=== PATIENT | female | born 1980 | race Two or more races ===

== ENCOUNTER 2018-02-19 17:07 | Emergency (ER) | payer MEDICAID, OTHER ==
[~2018-02-19] VITALS: Ht 162.6 cm; Wt 117.0 kg
[2018-02-19 19:35] VITALS: BP 119/64
[2018-02-19 19:59] LABS: Calcium 8.8 mg/dL (8.5-10.1); Potassium 4.1 mmol/L (3.5-5.1)
[2018-02-19] MEDS ORDERED: SODIUM CHLORIDE 0.9% 1,000 ML IV ONE (20:00)
[2018-02-19] MEDS ORDERED: ACETAMINOPHEN 500 MG TAB PO ONE (20:00)
[2018-02-19 20:03] LABS: BUN/Creatinine Ratio 9.8; Bilirubin, Total 0.3 mg/dL (0.2-1.0); Total Protein 7.5 g/dL (6.4-8.2)
[2018-02-19 20:32] LABS: Basophils # (auto) 0.1 uL; Basophils % (auto) 0.9 % (0.0-2.0); Eosinophils # (auto) 0.1 uL; Eosinophils % (auto) 1.5 % (0.0-7.0); Hematocrit 35.7 % (36.0-46.0); Hemoglobin 11.9 g/dL (12.2-16.2); Lymphocytes # (auto) 1.8 uL; Lymphocytes % (auto) 22.8 % (10.0-50.0); Mean Corpuscular Hemoglobin 29.5 pg (28.0-32.0); Mean Corpuscular Hgb Conc. 33.4 g/dL (32.0-36.0); Mean Corpuscular Volume 88.4 fL (80.0-100.0); Monocytes # (auto) 0.5 uL; Monocytes % (auto) 5.8 % (0.0-12.0); Neutrophils # (auto) 5.6 uL; Platelet Count (auto) 193 10^3/uL (140-450); Red Blood Cells 4.04 10^6/uL (4.0-5.20); Red Cell Distribution Width 15.7 % (11.8-14.3); White Blood Cell 8.1 10^3/uL (4.4-10.8)
== END 2018-02-19 21:05 | disposition home or self-care (01) ==
LOC: ER 17:14
DX: O26.892 Other specified pregnancy related conditions, second trimester (principal); O99.342 Other mental disorders complicating pregnancy, second trimester; E86.0 Dehydration; F41.9 Anxiety disorder, unspecified; Z3A.19 19 weeks gestation of pregnancy
CPT/HCPCS: 36415; 76805; 80053; 82962; 84702; 85025; 96360

== ENCOUNTER 2018-05-11 17:14 | Emergency (ER) | payer MEDICAID ==
[~2018-05-11] VITALS: Ht 154.9 cm; Wt 122.0 kg
[2018-05-11 18:13] VITALS: BP 114/55
[2018-05-11] MEDS ORDERED: TERBUTALINE SULFATE 1 MG/ML 1ML VIAL SC ONE (19:26)
[2018-05-11] MEDS ORDERED: ACETAMINOPHEN 500 MG TAB PO ONE (23:30)
== END 2018-05-12 00:18 | disposition home or self-care (01) ==
LOC: ER 17:19 → LDRP 18:21 → UNDOADMOB 18:21 → ER 05-12 00:18
DX: O9A.213 Injury, poisoning and certain other consequences of external causes complicating pregnancy, third trimester (principal); S93.401A Sprain of unspecified ligament of right ankle, initial encounter; S83.91XA Sprain of unspecified site of right knee, initial encounter; Z3A.31 31 weeks gestation of pregnancy; X50.1XXA Overexertion from prolonged static or awkward postures, initial encounter; Y93.89 Activity, other specified; Y99.8 Other external cause status; Y92.89 Other specified places as the place of occurrence of the external cause
CPT/HCPCS: 29515; 99283; J3105

== ENCOUNTER 2018-05-11 18:21 | Observation (INO) | payer MEDICAID ==
[2018-05-11] MEDS ORDERED: TERBUTALINE SULFATE 1 MG/ML 1ML VIAL SC ONE (19:30)
[2018-05-11 19:53] LABS: Alcohol, Urine < 3.0 mg/dL (0-5); Amphetamine Screen, Urine NEGATIVE (NEGATIVE); Barbiturate Scree,Urine NEGATIVE (NEGATIVE); Benzodiazephine Screen, Urine NEGATIVE (NEGATIVE); Cannabinoid Screen, Urine NEGATIVE (NEGATIVE); Cocaine Screen, Urine NEGATIVE (NEGATIVE); Opiate Scree,Urine NEGATIVE (NEGATIVE); Phencyclidine Screen, Urine NEGATIVE (NEGATIVE)
[2018-05-11 20:02] LABS: Urine Bacteria NONE SEEN /hpf (None Seen); Urine Blood Negative /uL (Negative); Urine Mucus FEW (None Seen); Urine Specific Gravity 1.018 (1.001-1.035); Urine WBC 1 /hpf (0 - 5)
== END 2018-05-11 22:18 | disposition home or self-care (01) | DRG 566 ==
LOC: LDRP 18:21
PROVIDERS: ADMIT Specialist; ATTEND Specialist
DX: O26.893 Other specified pregnancy related conditions, third trimester (principal); M25.539 Pain in unspecified wrist; M79.10 Myalgia, unspecified site; M79.606 Pain in leg, unspecified; W19.XXXA Unspecified fall, initial encounter; Y93.89 Activity, other specified; Y92.89 Other specified places as the place of occurrence of the external cause; Y99.8 Other external cause status; Z3A.31 31 weeks gestation of pregnancy
CPT/HCPCS: 59025; 76805; 80307; 81001; 81002; G0378; 96372

== ENCOUNTER → 2018-06-15 | Outpatient (CLI) | payer MEDICAID ==
[2018-06-15 15:42] LABS: Basophils # (auto) 0 uL; Basophils % (auto) 0.7 % (0.0-2.0); Eosinophils # (auto) 0.1 uL; Eosinophils % (auto) 1.1 % (0.0-7.0); Hemoglobin 13.5 g/dL (12.2-16.2); Lymphocytes # (auto) 1.5 uL; Lymphocytes % (auto) 22.1 % (10.0-50.0); Mean Corpuscular Hemoglobin 30.4 pg (28.0-32.0); Mean Corpuscular Hgb Conc. 33.8 g/dL (32.0-36.0); Mean Corpuscular Volume 90.1 fL (80.0-100.0); Monocytes # (auto) 0.4 uL; Monocytes % (auto) 6.2 % (0.0-12.0); Neutrophils # (auto) 4.7 uL; Neutrophils % (auto) 69.9 % (37.0-80.0); Nucleated Red Blood Cells % 0.1 %; Platelet Count (auto) 182 10^3/uL (140-450); Red Blood Cells 4.45 10^6/uL (4.0-5.20); Red Cell Distribution Width 14.3 % (11.8-14.3); White Blood Cell 6.7 10^3/uL (4.4-10.8)
== END | disposition home or self-care (01) ==
LOC: LAB 15:15
PROVIDERS: ATTEND Specialist
DX: Z34.83 Encounter for supervision of other normal pregnancy, third trimester (principal); Z3A.37 37 weeks gestation of pregnancy
CPT/HCPCS: 36415; 85025; 87081

== ENCOUNTER → 2018-06-17 | Outpatient (CLI) | payer MEDICAID ==
[2018-06-17 11:50] LABS: Basophils # (auto) 0 uL; Basophils % (auto) 0.4 % (0.0-2.0); Eosinophils # (auto) 0.1 uL; Eosinophils % (auto) 0.8 % (0.0-7.0); Hematocrit 39.9 % (36.0-46.0); Hemoglobin 13.5 g/dL (12.2-16.2); Lymphocytes # (auto) 1.4 uL; Lymphocytes % (auto) 19.1 % (10.0-50.0); Mean Corpuscular Hemoglobin 30.4 pg (28.0-32.0); Mean Corpuscular Hgb Conc. 33.8 g/dL (32.0-36.0); Mean Corpuscular Volume 89.9 fL (80.0-100.0); Monocytes # (auto) 0.4 uL; Monocytes % (auto) 5.7 % (0.0-12.0); Neutrophils # (auto) 5.5 uL; Nucleated Red Blood Cells % 0.1 %; Platelet Count (auto) 179 10^3/uL (140-450); Red Blood Cells 4.43 10^6/uL (4.0-5.20); Red Cell Distribution Width 13.9 % (11.8-14.3); White Blood Cell 7.4 10^3/uL (4.4-10.8)
== END | disposition home or self-care (01) ==
LOC: LAB 11:00
PROVIDERS: ATTEND Specialist
DX: O09.93 Supervision of high risk pregnancy, unspecified, third trimester (principal); Z3A.37 37 weeks gestation of pregnancy
CPT/HCPCS: 36415; 83036; 85025

== ENCOUNTER 2018-06-30 12:15 | Observation (INO) | payer MEDICAID ==
[2018-06-30 13:57] LABS: Albumin 2.5 g/dL (3.4-5.0); Calcium 9.1 mg/dL (8.5-10.1); Potassium 4.2 mmol/L (3.5-5.1)
[2018-06-30 14:00] LABS: BUN/Creatinine Ratio 13.5; Bilirubin, Total 0.5 mg/dL (0.2-1.0); Total Protein 6.7 g/dL (6.4-8.2)
== END 2018-06-30 14:15 | disposition home or self-care (01) | DRG 566 ==
LOC: LDRP 12:15
PROVIDERS: ADMIT Specialist; ATTEND Specialist
DX: O26.613 Liver and biliary tract disorders in pregnancy, third trimester (principal); K83.1 Obstruction of bile duct; O09.523 Supervision of elderly multigravida, third trimester; O24.419 Gestational diabetes mellitus in pregnancy, unspecified control; O36.63X0 Maternal care for excessive fetal growth, third trimester, not applicable or unspecified; O62.9 Abnormality of forces of labor, unspecified; Z3A.38 38 weeks gestation of pregnancy
CPT/HCPCS: 36415; 59025; 76818; 80053; 81002; G0378

== ENCOUNTER 2018-07-01 08:55 | Inpatient (IN) | payer MEDICAID ==
[~2018-07-01] VITALS: Ht 165.1 cm; Wt 123.4 kg
[2018-07-01] MEDS: ceFAZolin 1GM/50ML 50 ML IV SCH (02:20)
[2018-07-01] MEDS ORDERED: LACT. RINGERS/OXYTOCIN 20UNITS 1,000 ML IV SCH (09:15)
[2018-07-01] MEDS ORDERED: PHISODERM TOP SOLN 240ML BTL TOP ONE (09:15)
[2018-07-01] MEDS ORDERED: PROMETHAZINE HCL 25 MG/ML 1ML IV PRN (09:15)
[2018-07-01] MEDS ORDERED: WITCH HAZEL-GLYCERIN PAD TOP PRN (09:15)
[2018-07-01] MEDS ORDERED: DERMOPLAST 60ML BOTTLE TOP PRN (09:15)
[2018-07-01] MEDS ORDERED: NALBUPHINE HCL 10 MG/1ml INJECTION IM PRN (09:15)
[2018-07-01] MEDS ORDERED: PENICILLIN G POT 5MIL/D5 50ML 50 ML IV ONE (09:30)
[2018-07-01] MEDS: LACTATED RINGER'S 1,000 ML IV SCH ×3 (09:35→22:00)
[2018-07-01 10:08] LABS: Basophils # (auto) 0 uL; Basophils % (auto) 0.4 % (0.0-2.0); Eosinophils # (auto) 0.1 uL; Eosinophils % (auto) 1.7 % (0.0-7.0); Hematocrit 39.4 % (36.0-46.0); Hemoglobin 13.1 g/dL (12.2-16.2); Lymphocytes # (auto) 1.4 uL; Lymphocytes % (auto) 20.2 % (10.0-50.0); Mean Corpuscular Hemoglobin 29.8 pg (28.0-32.0); Mean Corpuscular Hgb Conc. 33.2 g/dL (32.0-36.0); Mean Corpuscular Volume 89.7 fL (80.0-100.0); Monocytes # (auto) 0.5 uL; Monocytes % (auto) 6.8 % (0.0-12.0); Neutrophils % (auto) 70.9 % (37.0-80.0); Nucleated Red Blood Cells % 0.2 %; Platelet Count (auto) 179 10^3/uL (140-450); Red Blood Cells 4.39 10^6/uL (4.0-5.20); Red Cell Distribution Width 14.1 % (11.8-14.3); White Blood Cell 7.1 10^3/uL (4.4-10.8)
[2018-07-01 10:51] LABS: INR 0.87 (0.9-1.15); Partial Thromboplastin Time 25.2 sec (23.78-33.04); Prothrombin Time 9.4 sec (9.27-12.13)
[2018-07-01 11:06] LABS: Fibrinogen 522.5 mg/dL (177-375)
[2018-07-01] MEDS ORDERED: TERBUTALINE SULFATE 1 MG/ML 1ML VIAL SC ONE ×2 (12:00→13:40)
[2018-07-01 12:14] LABS: Albumin 2.5 g/dL (3.4-5.0); Calcium 9.3 mg/dL (8.5-10.1); Potassium 3.7 mmol/L (3.5-5.1); Uric Acid 4.3 mg/dL (2.6-6.0)
[2018-07-01 12:16] LABS: Bilirubin, Total 0.5 mg/dL (0.2-1.0); Total Protein 6.9 g/dL (6.4-8.2)
[2018-07-01] MEDS ORDERED: PENICILLIN G POTASSIUM 2,500,000 UNITS in D5W 5% 50 ML IV SCH (13:15)
[2018-07-01] MEDS ORDERED: TERBUTALINE SULFATE 5 MG TAB PO ONE (13:45)
[2018-07-01] MEDS ORDERED: OXYTOCIN 10UNIT/ML 1ML VIAL IV ONE (17:32)
[2018-07-01] MEDS ORDERED: MORPHINE SULF(PF) 0.5MG/ML 10ML VIAL ONE (17:35)
[2018-07-01] MEDS ORDERED: fentaNYL CITRATE 100 MCG/2 ML VL ONE (17:35)
[2018-07-01] MEDS ORDERED: SODIUM CITR/CITRIC ACID ORAL SOLN 30 ML PO SCH (18:00)
[2018-07-01] MEDS ORDERED: ONDANSETRON HCL 4 MG/2 ML VIAL IV PRN (19:15)
[2018-07-01] MEDS ORDERED: HYDROmorphone HCL 2 MG/ML VL IV PRN (19:15)
[2018-07-01] MEDS ORDERED: NALOXONE HCL 0.4 MG/ML VIAL IV PRN (19:15)
[2018-07-01] MEDS ORDERED: ACETAMINOPHEN IV 1000 MG/100ML (10MG/ML) IV ONE (19:15)
[2018-07-01 20:00] VITALS: BP 118/71
[2018-07-01 21:00] VITALS: BP 122/70
[2018-07-01] MEDS: diphenhdrAMINE HCL 50 MG/1 ML VL IV PRN (22:52)
[2018-07-01 23:00] VITALS: BP 109/63
[2018-07-02] VITALS (11 sets, daily range): BP systolic 96–131; BP diastolic 49–76
[2018-07-02] MEDS: KETOROLAC TROMETH 30 MG/ML 1ML VIAL IV SCH ×2 (02:35→09:46)
[2018-07-02] MEDS: diphenhdrAMINE HCL 50 MG/1 ML VL IV PRN ×2 (03:45→09:47)
[2018-07-02 06:15] LABS: Basophils # (auto) 0 uL; Basophils % (auto) 0.5 % (0.0-2.0); Eosinophils # (auto) 0.1 uL; Hematocrit 31.3 % (36.0-46.0); Hemoglobin 10.5 g/dL (12.2-16.2); Lymphocytes # (auto) 1.5 uL; Lymphocytes % (auto) 21.4 % (10.0-50.0); Mean Corpuscular Hemoglobin 30.6 pg (28.0-32.0); Mean Corpuscular Hgb Conc. 33.6 g/dL (32.0-36.0); Mean Corpuscular Volume 90.9 fL (80.0-100.0); Monocytes # (auto) 0.4 uL; Monocytes % (auto) 5.6 % (0.0-12.0); Neutrophils # (auto) 5.1 uL; Neutrophils % (auto) 71.5 % (37.0-80.0); Platelet Count (auto) 141 10^3/uL (140-450); Red Blood Cells 3.44 10^6/uL (4.0-5.20); Red Cell Distribution Width 14.2 % (11.8-14.3); White Blood Cell 7.1 10^3/uL (4.4-10.8)
[2018-07-02] MEDS: LACTATED RINGER'S 1,000 ML IV SCH (06:50)
[2018-07-02] MEDS ORDERED: HYDROcodone-ACET 5/325MG TAB PO PRN (10:15)
[2018-07-02] MEDS: ceFAZolin 1GM/50ML 50 ML IV SCH ×2 (10:31→19:55)
[2018-07-02] MEDS: IBUPROFEN 800 MG TAB PO PRN ×2 (15:04→22:40)
[2018-07-02] MEDS ORDERED: ceFAZolin 1GM/50ML 50 ML IV SCH (19:45)
[2018-07-02] MEDS: HYDROcodone-ACET 5/325MG TAB PO PRN (20:50)
[2018-07-02] MEDS: DOCUSATE SOD 100 MG CAP PO SCH (22:32)
[2018-07-03] MEDS: HYDROcodone-ACET 5/325MG TAB PO PRN ×5 (02:58→23:14)
[2018-07-03 03:02] VITALS: BP 107/55
[2018-07-03 07:43] VITALS: BP 103/57
[2018-07-03] MEDS: DOCUSATE SOD 100 MG CAP PO SCH ×2 (09:44→22:31)
[2018-07-03] MEDS ORDERED: LABETALOL HCL 200 MG TAB PO SCH (10:00)
[2018-07-03 12:00] VITALS: BP 111/62
[2018-07-03] MEDS: IBUPROFEN 800 MG TAB PO PRN ×2 (12:45→20:55)
[2018-07-03 16:00] VITALS: BP 103/66
[2018-07-03 22:57] VITALS: BP 108/61
[2018-07-04 03:00] VITALS: BP 97/52
[2018-07-04] MEDS: HYDROcodone-ACET 5/325MG TAB PO PRN ×2 (04:17→10:51)
[2018-07-04] MEDS: IBUPROFEN 800 MG TAB PO PRN (05:09)
[2018-07-04 07:35] VITALS: BP 115/62
[2018-07-04] MEDS ORDERED: PREN-96 PO (08:47)
[2018-07-04] MEDS: DOCUSATE SOD 100 MG CAP PO SCH (09:57)
[2018-07-04 11:30] VITALS: BP 104/65
== END 2018-07-04 12:30 | disposition home or self-care (01) | DRG 540 ==
LOC: LDRP 08:55
PROVIDERS: ADMIT Specialist; ATTEND Specialist
PROC: 0UB60ZZ Excision of Left Fallopian Tube, Open Approach (ICD-10-PCS; 2018-07-01)
PROC: 0UL70CZ Occlusion of Bilateral Fallopian Tubes with Extraluminal Device, Open Approach (ICD-10-PCS; 2018-07-01)
PROC: 10D00Z1 Extraction of Products of Conception, Low, Open Approach (ICD-10-PCS; principal; 2018-07-01 17:32)
DX: O36.63X0 Maternal care for excessive fetal growth, third trimester, not applicable or unspecified (principal); K83.1 Obstruction of bile duct; O26.62 Liver and biliary tract disorders in childbirth; O24.429 Gestational diabetes mellitus in childbirth, unspecified control; E66.01 Morbid (severe) obesity due to excess calories; O99.214 Obesity complicating childbirth; O99.824 Streptococcus B carrier state complicating childbirth; N83.8 Other noninflammatory disorders of ovary, fallopian tube and broad ligament; Z37.0 Single live birth; Z3A.38 38 weeks gestation of pregnancy; Z90.49 Acquired absence of other specified parts of digestive tract
CPT/HCPCS: 36415; 59025; 76805; 76818; 80053; 81002; 84550; 85025; 85384; 85610; 85730; 86592; 86790; 86850; 86900; 86901; 87340; 94760; 94762; 96366; 96372; 96375; G0378; J0131; J0690; J1885; J2540; J7060

== ENCOUNTER 2018-11-14 18:49 | Emergency (ER) | payer SELFPAY ==
[~2018-11-14] VITALS: Ht 165.1 cm; Wt 122.5 kg
[~2018-11-14 18:49] MED LIST: PREN-96 PO
[2018-11-15 04:45] VITALS: BP 140/81
[2018-11-15] MEDS ORDERED: METHOCARBAMOL 500 MG TAB PO ONE (04:45)
[2018-11-15] MEDS ORDERED: IBUPROFEN 800 MG TAB PO ONE (04:45)
== END 2018-11-15 06:07 | disposition home or self-care (01) ==
LOC: ER 18:50
DX: M54.5 Low back pain (principal); R42 Dizziness and giddiness; R51 Headache; R11.0 Nausea; W01.0XXA Fall on same level from slipping, tripping and stumbling without subsequent striking against object, initial encounter; Y93.89 Activity, other specified; Y99.8 Other external cause status; Y92.89 Other specified places as the place of occurrence of the external cause
CPT/HCPCS: 72100; 73110; 73562

== ENCOUNTER 2018-12-07 16:20 | Emergency (ER) | payer SELFPAY ==
[~2018-12-07] VITALS: Ht 162.6 cm; Wt 122.5 kg
[2018-12-07 18:20] VITALS: BP 134/77
[2018-12-07] MEDS ORDERED: KETOROLAC TROMETH 60MG/2ML VIAL IM ONE (20:53)
== END 2018-12-07 22:26 | disposition home or self-care (01) ==
LOC: ER 16:23
DX: M79.602 Pain in left arm (principal); M25.512 Pain in left shoulder; M25.522 Pain in left elbow; R51 Headache; Z90.49 Acquired absence of other specified parts of digestive tract; Z79.899 Other long term (current) drug therapy
CPT/HCPCS: 29105; 73030; 73060; 73080; 96372; 99283; J1885

== ENCOUNTER 2018-12-26 21:49 | Emergency (ER) | payer MEDICAID ==
[~2018-12-26] VITALS: Ht 162.6 cm; Wt 104.3 kg
[2018-12-26] MEDS ORDERED: ASPirin 81 mg TAB PO ONE (22:15)
[2018-12-26 22:44] LABS: Basophils # (auto) 0.1 uL; Basophils % (auto) 1.3 % (0.0-2.0); Eosinophils # (auto) 0.2 uL; Eosinophils % (auto) 2.4 % (0.0-7.0); Hematocrit 39.1 % (36.0-46.0); Hemoglobin 13.2 g/dL (12.2-16.2); Lymphocytes # (auto) 2.5 uL; Lymphocytes % (auto) 28.4 % (10.0-50.0); Mean Corpuscular Hemoglobin 29.9 pg (28.0-32.0); Mean Corpuscular Hgb Conc. 33.8 g/dL (32.0-36.0); Mean Corpuscular Volume 88.4 fL (80.0-100.0); Monocytes # (auto) 0.6 uL; Monocytes % (auto) 7.1 % (0.0-12.0); Neutrophils # (auto) 5.3 uL; Neutrophils % (auto) 60.8 % (37.0-80.0); Nucleated Red Blood Cells % 0.1 %; Platelet Count (auto) 185 10^3/uL (140-450); Red Blood Cells 4.43 10^6/uL (4.0-5.20); Red Cell Distribution Width 13.4 % (11.8-14.3); White Blood Cell 8.8 10^3/uL (4.4-10.8)
[2018-12-26 23:10] LABS: INR 0.93 (0.9-1.15); Partial Thromboplastin Time 25.6 sec (23.64-32.05)
[2018-12-26 23:13] LABS: Alanine Aminotransferase 43 U/L (13-56); Albumin 3.3 g/dL (3.4-5.0); Anion Gap 5 (5-15); Aspartate Aminotransferase 44 U/L (15-37); BUN/Creatinine Ratio 14.5; Blood Urea Nitrogen 8 mg/dL (7-18); Calcium 8.4 mg/dL (8.5-10.1); Carbon Dioxide 28 mmol/L (21-32); Chloride 104 mmol/L (98-107); GFR African American 159 mL/min; GFR Non-African American 131 mL/min; Glucose 103 mg/dL (74-106); Potassium 4.4 mmol/L (3.5-5.1); Sodium 137 mmol/L (136-145)
[2018-12-26 23:29] LABS: Alkaline Phosphatase 68 U/L (45-117); Bilirubin, Total 0.5 mg/dL (0.2-1.0); Total Protein 7.3 g/dL (6.4-8.2)
[2018-12-26] MEDS ORDERED: LIDOCAINE VISCOUS 2% 15ML UD PO ONE (23:45)
[2018-12-26] MEDS ORDERED: ALUM & MAG HYDROX-SIMETH LIQ(MAALOX) 30 ML PO ONE (23:45)
[2018-12-26] MEDS ORDERED: DONNATAL 5ml ORAL Elix (BELLADONNA ALK-PHENOBARB) PO ONE (23:45)
[2018-12-27 00:30] VITALS: BP 126/79
== END 2018-12-27 02:51 | disposition home or self-care (01) ==
LOC: EDBD 21:49 → ER 21:55
DX: K21.9 Gastro-esophageal reflux disease without esophagitis (principal); R07.2 Precordial pain; F41.9 Anxiety disorder, unspecified; M06.9 Rheumatoid arthritis, unspecified; Z79.899 Other long term (current) drug therapy
CPT/HCPCS: 36415; 71045; 80053; 83880; 84484; 85025; 85610; 85730; 93005; 94761

== ENCOUNTER → 2019-09-14 | Emergency (ER) | payer MEDICAID ==
[~2019-09-14] VITALS: Ht 162.6 cm; Wt 113.4 kg
[~2019-09-14] MED LIST changes: +ACETAMINOPHEN/CODEINE#3 (300/30mg) TAB PO ONE
[2019-09-14 16:05] VITALS: BP 144/82
== END | disposition home or self-care (01) ==
LOC: ER 15:46
DX: K08.89 Other specified disorders of teeth and supporting structures (principal); Z90.49 Acquired absence of other specified parts of digestive tract

== ENCOUNTER 2020-09-26 17:47 | Emergency (ER) | payer MEDICAID ==
[~2020-09-26] VITALS: Ht 165.1 cm; Wt 127.0 kg
[~2020-09-26 17:47] MED LIST changes: -ACETAMINOPHEN/CODEINE#3 (300/30mg) TAB PO ONE
[2020-09-26 18:32] VITALS: BP 136/73
[2020-09-26] MEDS ORDERED: ONDANSETRON ODT 4 MG TAB PO ONE (20:15)
[2020-09-26] MEDS ORDERED: HYDROcodone-ACET 10/325MG TAB PO ONE (20:15)
== END 2020-09-26 20:54 | disposition home or self-care (01) ==
LOC: ER 17:47
DX: S63.501A Unspecified sprain of right wrist, initial encounter (principal); Z90.49 Acquired absence of other specified parts of digestive tract; Z79.899 Other long term (current) drug therapy; W18.39XA Other fall on same level, initial encounter; Y93.89 Activity, other specified; Y92.89 Other specified places as the place of occurrence of the external cause; Y99.8 Other external cause status
CPT/HCPCS: 29125; 73110; 99283; Q0162

== ENCOUNTER 2021-05-13 09:18 | Emergency (ER) | payer MEDICAID ==
[~2021-05-13] VITALS: Ht 165.1 cm; Wt 127.0 kg
[2021-05-13 10:58] VITALS: BP 154/98
[2021-05-13] MEDS ORDERED: IBUP800T27 PO (13:55)
[2021-05-13] MEDS ORDERED: PRED20TA2 PO (13:55)
[2021-05-13] MEDS ORDERED: CIPRSUS OT (13:55)
[2021-05-13] MEDS ORDERED: KETOROLAC TROMETH 60MG/2ML VIAL IM ONE (14:00)
[2021-05-13] MEDS ORDERED: methylPREDNISolone SOD SUCC 125 MG/2 ML VL IM ONE (14:00)
== END 2021-05-13 14:35 | disposition home or self-care (01) ==
LOC: ER 09:18
DX: H60.93 Unspecified otitis externa, bilateral (principal); Z90.49 Acquired absence of other specified parts of digestive tract; Z98.51 Tubal ligation status
CPT/HCPCS: 96372; 99284; J1885; J2930

== ENCOUNTER 2025-02-09 18:40 | Emergency (ER) | payer SELFPAY, MEDICAID ==
[~2025-02-09] VITALS: Ht 162.6 cm; Wt 123.0 kg
[~2025-02-09 18:40] MED LIST changes: +CIPRSUS OT; +IBUP-1456 PO; +PRED20TA2 PO
[2025-02-09] MEDS: SODIUM CHLORIDE 0.9% 2,000 ML IV ONE (20:39)
[2025-02-09] MEDS: KETOROLAC TROMETH 30 MG/ML 1ML VIAL IV ONE (20:55)
[2025-02-09] MEDS: PROCHLORPERAZINE EDISYLATE 5 MG/ML 2ML VIAL IV ONE (20:55)
[2025-02-09 21:11] LABS: Hematocrit 40.6 % (36.0-46.0); Hemoglobin 13.7 g/dL (12.2-16.2); Mean Corpuscular Hemoglobin 29.6 pg (28.0-32.0); Mean Corpuscular Volume 87.7 fL (80.0-100.0); Nucleated Red Blood Cells % 0.2 %
[2025-02-09 21:23] LABS: Alanine Aminotransferase 19 U/L (7-40); Albumin 4.3 g/dL (3.2-4.8); Alkaline Phosphatase 64 U/L (46-116); Anion Gap 10 (5-15); BUN/Creatinine Ratio 14.1 (10.0-20.0); Calcium 8.9 mg/dL (8.7-10.4); Carbon Dioxide 26 mmol/L (20-31); Chloride 105 mmol/L (98-107); Potassium 4.3 mmol/L (3.5-5.1); Sodium 141 mmol/L (136-145); Total Protein 7.6 g/dL (5.7-8.2)
[2025-02-09 21:24] LABS: Bilirubin, Total 0.7 mg/dL (0.2-1.0)
[2025-02-09 21:26] LABS: Free T3 3.42 pg/mL (2.3-4.2)
[2025-02-09 21:27] LABS: Free T4 (Free Thyroxine) 1.12 ng/dL (0.89-1.76)
[2025-02-09 21:30] LABS: Blood Urea Nitrogen 9 mg/dL (9-23); Glucose 114 mg/dL (74-106)
--- NOTE | 2025-02-09 21:31 | ED.PDOC ---
HPI (NEURO) HPI Comments 44-year-old female presents to the ED chief complaint headache x2 weeks. Patient reports gradual onset of headache top of her head 9/10 on pain scale describes as pressure, related symptoms of nausea. patient also reports proximally three months ago was diagnosed with multiple thyroid nodules one was aspirated and was negative she also notes was diagnosed with hypothyroidism and was supposed to take medication but currently not on any make indication due to her current insurance status. patient also states changes in her menstrual cycle. denies or urinary symptoms. Denies chest pain, difficulty breathing, shortness of breath, numbness, weakness. 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: No Pertinent SPRUE KNOCKER History Family History Family History: Unknown Social History Smoker: Non-Smoker Alcohol: Denies ETOH Use Drugs: Denies Drug Use Lives In: Home All Other Systems: Reviewed and Negative (SEE HPI) Physical Exam General Appearance: No Apparent Distress, Normal HEENT: Normal ENT Inspection, Pharynx Normal, TMs Normal Neck: Full Range of Motion, Non-Tender Respiratory: Lungs Clear, No Respiratory Distress, Normal Breath Sounds Cardiovascular: No Edema, No JVD, No Murmur, No Gallop, Normal Peripheral Pulses, Regular Rate/Rhythm Breast Exam: Deferred Gastrointestinal: No Organomegaly, Non Tender, No Pulsatile Mass, Normal Bowel Sounds, Soft Genitalia: Deferred Pelvic: Deferred Rectal: Deferred Extremities: Normal capillary refill, Normal range of motion, No pedal edema Musculoskeletal : Apperance: Normal Neurologic: Alert, No Motor Deficits, Normal Affect, Normal Mood, No Sensory Deficits Cerebellar Function: Normal Reflexes: Normal Skin: Dry, Normal Color, Warm Lymphatic: No Adenopathy Was a procedure done? Was a procedure done?: No Differential Diagnosis (SZ) Headache: Cluster, Migraine, Epidural Hemorrhage, Intracerebral Hemorrhage, Subarachnoid Hemorrhage, Subdural Hemorrhage, Mass Lesion, Meningitis, Sinusitis X-Ray, Labs, Meds, VS Vital Signs Date Time Temp Pulse Resp B/P (MAP) Pulse Ox O2 Delivery O2 Flow Rate FiO2 02/09/25 21:48 98.3 75 19 129/85 (100) 96 98.3 02/09/25 20:35 98.3 79 19 140/90 (107) 94 98.3 02/09/25 20:05 Room Air* 0 21 02/09/25 18:41 97.0 83 18 128/58 97 97.0 Lab Test 02/09/25 20:38 02/09/25 20:16 Range/Units White Blood Count 8.6 4.4-10.8 10^3/uL Red Blood Count 4.63 4.0-5.20 10^6/uL Hemoglobin 13.7 12.2-16.2 g/dL Hematocrit 40.6 36.0-46.0 % Mean Corpuscular Volume 87.7 80.0-100.0 fL Mean Corpuscular Hemoglobin 29.6 28.0-32.0 pg Mean Corpuscular Hemoglobin Concent 33.7 32.0-36.0 g/dL Red Cell Distribution Width 13.3 11.8-14.3 % Platelet Count 210 140-450 10^3/uL Mean Platelet Volume 9.8 6.9-10.8 fL Neutrophils (%) (Auto) 60.1 37.0-80.0 % Lymphocytes (%) (Auto) 30.2 10.0-50.0 % Monocytes (%) (Auto) 7.1 0.0-12.0 % Eosinophils (%) (Auto) 1.7 0.0-7.0 % Basophils (%) (Auto) 0.9 0.0-2.0 % Neutrophils # (Auto) 5.2 1.6-8.6 10 ^3/uL Lymphocytes # (Auto) 2.6 0.4-5.4 10 ^3/uL Monocytes # (Auto) 0.6 0-1.3 10 ^3/uL Eosinophils # (Auto) 0.1 0-0.8 10 ^3/uL Basophils # (Auto) 0.1 0-0.2 10 ^3/uL Nucleated Red Blood Cells 0.2 % Sodium Level 141 136-145 mmol/L Potassium Level 4.3 3.5-5.1 mmol/L Chloride Level 105 98-107 mmol/L Carbon Dioxide Level 26 20-31 mmol/L Anion Gap 10 5-15 Blood Urea Nitrogen 9 9-23 mg/dL Creatinine 0.64 0.550-1.02 mg/dL Glomerular Filtration Rate Calc 112 >90 mL/min BUN/Creatinine Ratio 14.1 10.0-20.0 Serum Glucose 114 H 74-106 mg/dL Calcium Level 8.9 8.7-10.4 mg/dL Total Bilirubin 0.7 0.2-1.0 mg/dL Aspartate Amino Transferase (AST) 27 13-40 U/L Alanine Aminotransferase (ALT) 19 7-40 U/L Alkaline Phosphatase 64 46-116 U/L Total Protein 7.6 5.7-8.2 g/dL Albumin 4.3 3.2-4.8 g/dL Thyroid Stimulating Hormone (TSH) 1.04 0.55-4.78 uIU/mL Free Thyroxine (T4) Calculated 1.12 0.89-1.76 ng/dL Free Triiodothyronine (T3) pg/mL 3.42 2.3-4.2 pg/mL POC Glucose 129 H 70-106 mg/dl Current Medications Medications (Trade) Dose Ordered Sig/Bertrand Route Start Time Stop Time Status Last Admin Sodium Chloride 2,000 ml @ 1,000 mls/hr Q2H ONCE IV 02/09/25 20:30 02/09/25 21:39 DC 02/09/25 20:39 Ketorolac Tromethamine (Toradol Injection) 30 mg ONCE ONCE IV 02/09/25 20:30 02/09/25 20:31 DC 02/09/25 20:55 Prochlorperazine Edisylate (Compazine Inj) 5 mg ONCE ONCE IV 02/09/25 20:30 02/09/25 20:31 DC 02/09/25 20:55 Dexamethasone Sodium Phosphate (Decadron Injection) 10 mg ONCE ONCE IV 02/09/25 20:30 02/09/25 20:31 DC 02/09/25 20:55 X-Ray, Labs, Meds, VS Comment CBC CMP TSH panel within normal limits patient was given IV fluids 1 L bolus Compazine 5 mg IV push, Decadron 10 mg IV push, and Toradol 30 mg IV push reports moderate improvement in headache Requesting discharge at this time. script trial of anti-inflammatory and sumatriptan advised take medication as prescribed side effects discussed. Advised to call her PCP in the morning schedule a follow up appointment for her thyroid nodules. advised to rest increase p.o. fluids with electrolytes. ER return precautions given patient indicates understanding agrees with discharge plan of care. Time of 1ST Reevaluation: 18:58 Reevaluation 1ST: Unchanged Time of 2ND Reevaluation: 21:40 Reevaluation 2ND: Improved Patient Education/Counseling: Diagnosis, Treatment, Need For Follow Up Family Education/Counseling: No Family Present Departure 1 Departure Time of Disposition: 21:40 Impression: Primary Impression: Migraine Qualified Codes: G43.909 - Migraine, unspecified, not intractable, without status migrainosus Disposition: HOME / SELF CARE / HOMELESS Condition: Stable e-Prescriptions Naproxen Sodium (Naproxen Sodium) 500 Mg Tab 500 MG PO BID PRN for 6 Days, #12 TAB Prov: MERY SPENCER 02/09/25 Sumatriptan Succinate (Sumatriptan Succinate) 25 Mg Tab 25 MG PO DAILY PRN for 3 Days, #6 TAB Take one tablet by mouth onset of migraine may repeat another tablet x1 1-2hrs after For continued headache Prov: MERY SPENCER 02/09/25 Discharged With: Self Critical Care Note Critical Care Time?: No Stability Stability form required: No MERY SPENCER Feb 09, 2025 21:31
[2025-02-09] MEDS ORDERED: SUMA25TA2 PO (21:40)
[2025-02-09] MEDS ORDERED: NAPR1TAB87 PO (21:40)
[2025-02-09 21:48] VITALS: BP 129/85; PULSE 75; RESP 19; TEMP 98.3; O2SAT 96
== END 2025-02-09 21:51 | disposition home or self-care (01) ==
LOC: ER 18:44
DX: G43.909 Migraine, unspecified, not intractable, without status migrainosus (principal); F41.9 Anxiety disorder, unspecified; M19.90 Unspecified osteoarthritis, unspecified site; E03.9 Hypothyroidism, unspecified; Z98.51 Tubal ligation status; Z90.49 Acquired absence of other specified parts of digestive tract
CPT/HCPCS: 36415; 80053; 82947; 84439; 84443; 84481; 85025; 96361; 96374; 96375; 99284; J0780; J1100; J1885; J7030; 82962

== ENCOUNTER 2025-04-30 21:29 | Emergency (ER) | payer SELFPAY, MEDICAID ==
[~2025-04-30] VITALS: Ht 162.6 cm; Wt 122.7 kg
[2025-04-30] MEDS: HYDROcodone-ACET 5/325MG TAB PO ONE (22:56)
[2025-04-30 23:01] VITALS: PULSE 82; RESP 20; O2SAT 98
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
[2025-05-01] MEDS ORDERED: CYCL-837 PO (00:32)
[2025-05-01] MEDS ORDERED: IBUP-1455 PO (00:32)
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
[2025-05-01 00:37] VITALS: BP 125/56; PULSE 75; RESP 20; TEMP 97.5; O2SAT 97
== END 2025-05-01 00:55 | disposition home or self-care (01) ==
LOC: EDBD 21:29 → ER 21:29
DX: S20.219A Contusion of unspecified front wall of thorax, initial encounter (principal); S50.02XA Contusion of left elbow, initial encounter; S49.91XA Unspecified injury of right shoulder and upper arm, initial encounter; F41.9 Anxiety disorder, unspecified; M19.90 Unspecified osteoarthritis, unspecified site; Z79.899 Other long term (current) drug therapy; Z98.51 Tubal ligation status; Z90.49 Acquired absence of other specified parts of digestive tract; Z79.52 Long term (current) use of systemic steroids; V43.52XA Car driver injured in collision with other type car in traffic accident, initial encounter; Y93.89 Activity, other specified; Y92.488 Other paved roadways as the place of occurrence of the external cause; Y99.8 Other external cause status
CPT/HCPCS: 70450; 72125; 73030; 73070